=== PATIENT | male | born 1975 | race Caucasian/White ===

== ENCOUNTER 2020-12-22 15:24 | Emergency (ER) | payer OTHER ==
[~2020-12-22] VITALS: Ht 170.2 cm; Wt 79.4 kg
[2020-12-22 15:36] VITALS: BP 157/97
--- NOTE | 2020-12-22 15:37 | NUR ---
Patient ambulated to bed 01 with steady/even gait.
--- NOTE | 2020-12-22 15:40 | NUR ---
45 y/o M coming in from work with c/c low back pain. Patient states he was at work lifting a pallet of boxes approximately >100lbs / 5 inches above his head when it fell on the back of his head. Patient states the weight forced his head to snap forward and reports pain to the low back. Patient reports 8/10, pressure/constant, non-radiating low back pain that worsens upon exhalation. Pt denies ALOC, blood thinners, blurry vision, N/V, dizziness, ringing of the ears, or any other pain to his body. Patient states he took Ibuprofen 800mg prior to ER arrival without relief. Pt placed onto blood pressure cuff, pulse ox. Bed locked in lowest position, side rails x 1, call light in reach. PMH/Sx/Meds: [place] [facility]
--- NOTE | 2020-12-22 15:48 | NUR ---
DIANA Hammond is evaluating patient at bedside.
[2020-12-22] MEDS ORDERED: KETOROLAC 30 MG/ML VIAL IM ONE (15:55)
--- NOTE | 2020-12-22 16:05 | NUR ---
XRAY AT BEDSIDE, WILL BE TAKING PT .
--- NOTE | 2020-12-22 16:17 | NUR ---
RETURNED BACK FROM XRAY
--- NOTE | 2020-12-22 16:30 | NUR ---
Francisca (family) in lobby provided status update with patient's verbal consent.
--- NOTE | 2020-12-22 16:37 | NUR ---
Patient reports minor relief with Toradol 30mg IM. Patient states pain 7/10 at this time, however, still worsens with movement. Respirations even/unlabored. Bed locked in lowest position, side rails x 1, call light in reach.
--- NOTE | 2020-12-22 17:32 | NUR ---
DIANA Hammond is reevaluating patient at bedside.
[2020-12-22 17:35] VITALS: BP 138/84
[2020-12-22] MEDS ORDERED: ACET-8386 PO (17:38)
[2020-12-22] MEDS ORDERED: IBUP-2213 PO (17:38)
--- NOTE | 2020-12-22 17:55 | NUR ---
1755: Unable to complete Discharge Disposition due to application error
--- NOTE | 2020-12-22 17:55 | NUR ---
Patient discharged with v/s stable. Written and verbal after care instructions given and explained. Patient alert, oriented and verbalized understanding of instructions. Ambulatory with steady gait. All questions addressed prior to discharge. ID band removed. Patient advised to follow up with PMD. Rx of Hydrocodone/Acetaminophen, Ibuprofen given. Patient educated on indication of medication including possible reaction and side effects. Opportunity to ask questions provided and answered.
--- NOTE | 2020-12-22 18:00 | NUR ---
Spoke with family in lobby and provided discharge information regarding status update and need for follow-up care.
== END 2020-12-22 17:55 | disposition home or self-care (01) ==
LOC: MED 15:24
DX: S32.010A Wedge compression fracture of first lumbar vertebra, initial encounter for closed fracture (principal); S32.020A Wedge compression fracture of second lumbar vertebra, initial encounter for closed fracture; W19.XXXA Unspecified fall, initial encounter; Y93.89 Activity, other specified; Y92.89 Other specified places as the place of occurrence of the external cause; Y99.8 Other external cause status
CPT/HCPCS: 72100; 96372; 99283; J1885